=== PATIENT | male | born 1980 | race Two or more races ===

== ENCOUNTER 2019-11-07 20:58 | Emergency (ER) | payer BC, OTHER ==
[~2019-11-07] VITALS: Ht 180.3 cm; Wt 99.8 kg
[2019-11-07 22:04] LABS: Basophils # (auto) 0.1 uL; Basophils % (auto) 0.5 % (0.0-2.0); Eosinophils # (auto) 0.1 uL; Eosinophils % (auto) 1.4 % (0.0-7.0); Hematocrit 45.8 % (41.0-53.0); Hemoglobin 16.2 g/dL (13.5-17.5); Lymphocytes # (auto) 2.7 uL; Lymphocytes % (auto) 25.7 % (10.0-50.0); Mean Corpuscular Hemoglobin 30.1 pg (28.0-32.0); Mean Corpuscular Hgb Conc. 35.4 g/dL (32.0-36.0); Monocytes # (auto) 0.7 uL; Monocytes % (auto) 6.2 % (0.0-12.0); Neutrophils % (auto) 66.2 % (37.0-80.0); Nucleated Red Blood Cells % 1.2 %; Platelet Count (auto) 240 10^3/uL (140-450); Red Cell Distribution Width 13.1 % (11.8-14.3); White Blood Cell 10.6 10^3/uL (4.4-10.8)
[2019-11-07 22:20] LABS: BUN/Creatinine Ratio 15.7; Calcium 8.8 mg/dL (8.5-10.1); Potassium 3.4 mmol/L (3.5-5.1)
[2019-11-07] MEDS ORDERED: MECLIZINE HCL 25 MG TAB ONE (23:04)
[2019-11-07] MEDS ORDERED: MECLIZINE HCL 25 MG TAB PO ONE (23:15)
[2019-11-08 01:09] VITALS: BP 117/82
== END 2019-11-08 01:13 | disposition home or self-care (01) ==
LOC: ER 20:58 → EDBD 20:58 → ER 11-08 01:13
DX: R42 Dizziness and giddiness (principal)
CPT/HCPCS: 36415; 70450; 80048; 85025; 99284; J8597

== ENCOUNTER 2021-04-23 06:20 | Emergency (ER) | payer BC, OTHER ==
[~2021-04-23] VITALS: Ht 180.3 cm; Wt 121.6 kg
[2021-04-23] MEDS ORDERED: ASPirin 81 mg TAB PO ONE (06:45)
[2021-04-23 07:12] LABS: Albumin 3.8 g/dL (3.4-5.0); Anion Gap 6 (5-15); BUN/Creatinine Ratio 17.6; Blood Urea Nitrogen 13 mg/dL (7-18); Calcium 8.2 mg/dL (8.5-10.1); Carbon Dioxide 24 mmol/L (21-32); Chloride 106 mmol/L (98-107); GFR African American 150 mL/min; GFR Non-African American 124 mL/min; Glucose 133 mg/dL (74-106); Potassium 3.8 mmol/L (3.5-5.1); Sodium 136 mmol/L (136-145)
[2021-04-23 07:17] VITALS: BP 119/78
[2021-04-23 07:17] LABS: Alanine Aminotransferase 158 U/L (16-61); Alkaline Phosphatase 65 U/L (45-117); Aspartate Aminotransferase 88 U/L (15-37); Total Protein 7.6 g/dL (6.4-8.2)
[2021-04-23 07:28] LABS: Basophils # (auto) 0 10 ^3/uL (0-0.2); Basophils % (auto) 0.3 % (0.0-2.0); Eosinophils # (auto) 0.1 10 ^3/uL (0-0.8); Eosinophils % (auto) 1.9 % (0.0-7.0); Hematocrit 45.3 % (41.0-53.0); Hemoglobin 16.4 g/dL (13.5-17.5); Lymphocytes # (auto) 2.1 10 ^3/uL (0.4-5.4); Lymphocytes % (auto) 31.3 % (10.0-50.0); Mean Corpuscular Hemoglobin 31.7 pg (28.0-32.0); Mean Corpuscular Volume 87.6 fL (80.0-100.0); Monocytes # (auto) 0.4 10 ^3/uL (0-1.3); Monocytes % (auto) 5.7 % (0.0-12.0); Neutrophils % (auto) 60.8 % (37.0-80.0); Nucleated Red Blood Cells % 0.2 %; Red Blood Cells 5.17 10^6/uL (4.5-5.90); Red Cell Distribution Width 13.2 % (11.8-14.3); White Blood Cell 6.7 10^3/uL (4.4-10.8)
[2021-04-23 07:32] LABS: Mean Corpuscular Hgb Conc. 36.2 g/dL (32.0-36.0)
[2021-04-23 08:36] LABS: Amphetamine Screen, Urine NEGATIVE (NEGATIVE); Barbiturate Scree,Urine NEGATIVE (NEGATIVE); Benzodiazephine Screen, Urine POSITIVE (NEGATIVE); Cannabinoid Screen, Urine NEGATIVE (NEGATIVE); Cocaine Screen, Urine NEGATIVE (NEGATIVE); Opiate Scree,Urine NEGATIVE (NEGATIVE); Phencyclidine Screen, Urine NEGATIVE (NEGATIVE)
== END 2021-04-23 08:01 | disposition home or self-care (01) ==
LOC: EDBD 06:20 → ER 06:20
DX: R07.89 Other chest pain (principal); F41.9 Anxiety disorder, unspecified; R73.9 Hyperglycemia, unspecified; I10 Essential (primary) hypertension; Z90.49 Acquired absence of other specified parts of digestive tract
CPT/HCPCS: 36415; 71045; 80053; 80307; 84443; 84484; 85025; 93005

== ENCOUNTER 2021-09-16 11:16 | Inpatient (IN) | payer BC ==
[~2021-09-16] VITALS: Ht 195.6 cm; Wt 121.0 kg
[2021-09-16] MEDS ORDERED: SODIUM CHLORIDE 0.9% 1,000 ML IVB ONE (11:30)
[2021-09-16] MEDS ORDERED: PANTOPRAZOLE 40 MG/10 ML VIAL INJ IV ONE (11:30)
[2021-09-16] MEDS ORDERED: PROCHLORPERAZINE EDISYLATE 5 MG/ML 2ML VIAL IV ONE (11:30)
[2021-09-16 14:10] LABS: Urine Bacteria NONE SEEN /hpf (None Seen); Urine Blood Negative /uL (Negative); Urine Specific Gravity 1.011 (1.001-1.035); Urine WBC 1 /hpf (0 - 3)
[2021-09-16 14:26] LABS: Eosinophils # (auto) 0 10 ^3/uL (0-0.8); Eosinophils % (auto) 0.4 % (0.0-7.0); Mean Corpuscular Hgb Conc. 35.9 g/dL (32.0-36.0); Monocytes # (auto) 0.4 10 ^3/uL (0-1.3)
[2021-09-16 14:27] LABS: Basophils # (auto) 0.1 10 ^3/uL (0-0.2); Basophils % (auto) 0.7 % (0.0-2.0); Hematocrit 50.2 % (41.0-53.0); Lymphocytes # (auto) 1.5 10 ^3/uL (0.4-5.4); Lymphocytes % (auto) 15.7 % (10.0-50.0); Mean Corpuscular Hemoglobin 31.9 pg (28.0-32.0); Monocytes % (auto) 4.4 % (0.0-12.0); Neutrophils # (auto) 7.4 10 ^3/uL (1.6-8.6); Neutrophils % (auto) 78.8 % (37.0-80.0); Nucleated Red Blood Cells % 0.5 %; Red Blood Cells 5.64 10^6/uL (4.5-5.90); Red Cell Distribution Width 13.3 % (11.8-14.3); White Blood Cell 9.4 10^3/uL (4.4-10.8)
[2021-09-16 14:42] LABS: Albumin 4.1 g/dL (3.4-5.0); Calcium 8.9 mg/dL (8.5-10.1); Magnesium 2.9 mg/dL (1.6-2.6); Potassium 3.9 mmol/L (3.5-5.1)
[2021-09-16 15:21] LABS: BUN/Creatinine Ratio 10.3; Bilirubin, Total 0.9 mg/dL (0.2-1.0); Total Protein 8.4 g/dL (6.4-8.2)
[2021-09-16] MEDS: MORPHINE SULFATE 4 MG/ML SYR/VIAL IV ONE ×2 (17:14→21:30)
[2021-09-16] MEDS ORDERED: HYDROcodone-ACET 5/325MG TAB PO PRN (21:30)
[2021-09-16] MEDS ORDERED: ONDANSETRON HCL 4 MG/2 ML VIAL IV PRN (21:30)
[2021-09-16] MEDS ORDERED: ACETAMINOPHEN 325 MG TAB PO PRN (21:30)
[2021-09-16] MEDS ORDERED: MORPHINE SULFATE INJECTION 2 MG/ML SYRG IV PRN (21:30)
[2021-09-16] MEDS ORDERED: TEMAZEPAM 15 MG CAP PO PRN (22:00)
[2021-09-16 23:30] VITALS: BP 131/85
[2021-09-17] MEDS ORDERED: AMOX250C3 PO (01:34)
[2021-09-17] MEDS ORDERED: OMEP20TA PO (01:34)
[2021-09-17] MEDS ORDERED: LOSA25TA38 PO (01:34)
[2021-09-17] MEDS ORDERED: ALPR0.254 PO (01:34)
[2021-09-17 05:00] VITALS: BP 131/89
[2021-09-17 06:39] LABS: Basophils # (auto) 0.1 10 ^3/uL (0-0.2); Basophils % (auto) 0.9 % (0.0-2.0); Eosinophils # (auto) 0.1 10 ^3/uL (0-0.8); Eosinophils % (auto) 1.4 % (0.0-7.0); Hematocrit 44.9 % (41.0-53.0); Hemoglobin 16.2 g/dL (13.5-17.5); Lymphocytes # (auto) 1.7 10 ^3/uL (0.4-5.4); Mean Corpuscular Hemoglobin 32.5 pg (28.0-32.0); Mean Corpuscular Volume 90.1 fL (80.0-100.0); Monocytes # (auto) 0.5 10 ^3/uL (0-1.3); Monocytes % (auto) 6.8 % (0.0-12.0); Neutrophils # (auto) 4.5 10 ^3/uL (1.6-8.6); Neutrophils % (auto) 65.9 % (37.0-80.0); Nucleated Red Blood Cells % 0.1 %; Red Blood Cells 4.98 10^6/uL (4.5-5.90); Red Cell Distribution Width 13.2 % (11.8-14.3); White Blood Cell 6.8 10^3/uL (4.4-10.8)
[2021-09-17 06:50] LABS: Albumin 3.4 g/dL (3.4-5.0); Calcium 8.3 mg/dL (8.5-10.1)
[2021-09-17 06:55] LABS: Bilirubin, Total 1.2 mg/dL (0.2-1.0); Total Protein 6.9 g/dL (6.4-8.2)
[2021-09-17 09:00] VITALS: BP 125/96
[2021-09-17] MEDS: PANTOPRAZOLE 40 MG TAB PO SCH (09:35)
[2021-09-17] MEDS: LOSARTAN POTASSIUM 25 MG TAB PO SCH (09:35)
[2021-09-17 13:00] VITALS: BP 126/79
[2021-09-17 17:00] VITALS: BP 140/97
[2021-09-17 22:00] VITALS: BP 127/84
[2021-09-18 05:00] VITALS: BP 103/69
[2021-09-18 08:37] VITALS: BP 120/93
[2021-09-18] MEDS: PANTOPRAZOLE 40 MG TAB PO SCH (08:38)
[2021-09-18] MEDS: LOSARTAN POTASSIUM 25 MG TAB PO SCH (08:39)
[2021-09-18] MEDS ORDERED: DOCUSATE SOD 100 MG CAP PO SCH (10:00)
== END 2021-09-18 13:40 | disposition home or self-care (01) | DRG 392 ==
LOC: EDBD 11:16 → ER 11:16 → OVERFLOW 21:16 → CENTRAL 23:27
PROVIDERS: ADMIT Nurse Practitioner; ATTEND Family Medicine
DX: K29.60 Other gastritis without bleeding (principal); B96.81 Helicobacter pylori [H. pylori] as the cause of diseases classified elsewhere; E11.9 Type 2 diabetes mellitus without complications; E66.01 Morbid (severe) obesity due to excess calories; E78.5 Hyperlipidemia, unspecified; F41.9 Anxiety disorder, unspecified; I10 Essential (primary) hypertension; K76.0 Fatty (change of) liver, not elsewhere classified; Z20.822 Contact with and (suspected) exposure to COVID-19; Z68.31 Body mass index [BMI] 31.0-31.9, adult; Z86.19 Personal history of other infectious and parasitic diseases; Z90.49 Acquired absence of other specified parts of digestive tract
CPT/HCPCS: 36415; 74176; 80053; 81001; 82150; 83690; 83735; 84484; 85025; 87426; 93005; 96361; 96374; 96375; C9113; G0378; J2405

== ENCOUNTER → 2021-10-10 | Outpatient (CLI) | payer BC ==
[~2021-10-10] MED LIST: ALPR0.254 PO; AMOX250C3 PO; LOSA25TA38 PO; OMEP20TA PO
[2021-10-10 13:12] LABS: Basophils # (auto) 0 10 ^3/uL (0-0.2); Basophils % (auto) 0.6 % (0.0-2.0); Eosinophils # (auto) 0.1 10 ^3/uL (0-0.8); Eosinophils % (auto) 1.5 % (0.0-7.0); Lymphocytes # (auto) 1.4 10 ^3/uL (0.4-5.4); Lymphocytes % (auto) 20.5 % (10.0-50.0); Mean Corpuscular Hemoglobin 30.9 pg (28.0-32.0); Mean Corpuscular Hgb Conc. 34.6 g/dL (32.0-36.0); Mean Corpuscular Volume 89.2 fL (80.0-100.0); Monocytes # (auto) 0.3 10 ^3/uL (0-1.3); Monocytes % (auto) 3.8 % (0.0-12.0); Neutrophils % (auto) 73.6 % (37.0-80.0); Nucleated Red Blood Cells % 0.1 %; Red Blood Cells 5.49 10^6/uL (4.5-5.90); White Blood Cell 6.8 10^3/uL (4.4-10.8)
[2021-10-10 13:58] LABS: Albumin 3.9 g/dL (3.4-5.0); Calcium 8.7 mg/dL (8.5-10.1); Potassium 3.8 mmol/L (3.5-5.1)
[2021-10-10 14:03] LABS: BUN/Creatinine Ratio 14.8; Bilirubin, Total 0.9 mg/dL (0.2-1.0); Total Protein 7.5 g/dL (6.4-8.2)
== END | disposition home or self-care (01) ==
LOC: LAB 12:35
PROVIDERS: ATTEND Internal Medicine Gastroenterology
DX: R94.5 Abnormal results of liver function studies (principal)
CPT/HCPCS: 36415; 80053; 80061; 82728; 83036; 85025; 86038; 86803; 87340

== ENCOUNTER → 2021-12-17 | Day surgery (SDC) | payer BC ==
[2021-12-15 13:45] LABS: Basophils # (auto) 0.2 10 ^3/uL (0-0.2); Basophils % (auto) 2.5 % (0.0-2.0); Eosinophils # (auto) 0.1 10 ^3/uL (0-0.8); Eosinophils % (auto) 0.6 % (0.0-7.0); Hematocrit 48.2 % (41.0-53.0); Hemoglobin 17.1 g/dL (13.5-17.5); Lymphocytes # (auto) 1.8 10 ^3/uL (0.4-5.4); Lymphocytes % (auto) 20.7 % (10.0-50.0); Mean Corpuscular Hemoglobin 31.8 pg (28.0-32.0); Mean Corpuscular Hgb Conc. 35.4 g/dL (32.0-36.0); Mean Corpuscular Volume 89.7 fL (80.0-100.0); Monocytes # (auto) 0.4 10 ^3/uL (0-1.3); Monocytes % (auto) 4.9 % (0.0-12.0); Neutrophils # (auto) 6.2 10 ^3/uL (1.6-8.6); Neutrophils % (auto) 71.3 % (37.0-80.0); Nucleated Red Blood Cells % 0.4 %; Red Blood Cells 5.37 10^6/uL (4.5-5.90); Red Cell Distribution Width 13.6 % (11.8-14.3); White Blood Cell 8.7 10^3/uL (4.4-10.8)
[2021-12-15 14:07] LABS: INR 0.99 (0.9-1.15); Partial Thromboplastin Time 25.2 sec (23.6-33.0)
[2021-12-15 14:33] LABS: Albumin 3.8 g/dL (3.4-5.0); BUN/Creatinine Ratio 12.2
[2021-12-15 14:36] LABS: Bilirubin, Total 0.7 mg/dL (0.2-1.0); Total Protein 7.9 g/dL (6.4-8.2)
[~2021-12-17] VITALS: Ht 180.3 cm; Wt 117.9 kg
[~2021-12-17] MED LIST changes: +CLAR1TAB21 PO; +FAMO20TA10 PO; +LIDOCAINE VISCOUS 2% 15ML UD ONE; +MIDAZOLAM HCL 5 MG/ML-1ML VIAL ONE; +ONDA-144 PO; +PANT40TA2 PO; +PERCOT PO; +SUCR1TAB22 PO
[2021-12-17] MEDS: MIDAZOLAM HCL 5 MG/ML-1ML VIAL ONE ×3 (13:41→13:47)
[2021-12-17] MEDS: diphenhdrAMINE HCL 50 MG/1 ML VL ONE ×2 (13:41→13:44)
[2021-12-17] MEDS: fentaNYL CITRATE 100 MCG/2 ML VL ONE ×5 (13:41→14:04)
[2021-12-17 14:50] VITALS: BP 144/97
== END | disposition home or self-care (01) ==
LOC: GI 12:33
PROVIDERS: ATTEND Internal Medicine Gastroenterology
DX: R19.4 Change in bowel habit (principal); K62.5 Hemorrhage of anus and rectum; D12.3 Benign neoplasm of transverse colon; K64.8 Other hemorrhoids; K29.50 Unspecified chronic gastritis without bleeding; K21.9 Gastro-esophageal reflux disease without esophagitis; K44.9 Diaphragmatic hernia without obstruction or gangrene; K22.10 Ulcer of esophagus without bleeding; K29.90 Gastroduodenitis, unspecified, without bleeding; K63.89 Other specified diseases of intestine; I10 Essential (primary) hypertension; G47.30 Sleep apnea, unspecified; J45.909 Unspecified asthma, uncomplicated; F41.9 Anxiety disorder, unspecified; Z80.3 Family history of malignant neoplasm of breast
CPT/HCPCS: 36415; 43239; 45380; 80053; 85025; 85610; 85730; 88305; 88342; J1200; J2250; J3010; J7030; U0003; 99152; 99153

== ENCOUNTER 2021-12-18 13:14 | Inpatient (IN) | payer BC ==
[~2021-12-18] VITALS: Ht 165.1 cm; Wt 128.2 kg
[~2021-12-18 13:14] MED LIST changes: -AMOX250C3 PO; -CLAR1TAB21 PO; -FAMO20TA10 PO; -LIDOCAINE VISCOUS 2% 15ML UD ONE; -MIDAZOLAM HCL 5 MG/ML-1ML VIAL ONE; -ONDA-144 PO; -PANT40TA2 PO; -PERCOT PO; -SUCR1TAB22 PO
[2021-12-18 14:08] LABS: Basophils # (auto) 0.1 10 ^3/uL (0-0.2); Basophils % (auto) 0.7 % (0.0-2.0); Eosinophils # (auto) 0.1 10 ^3/uL (0-0.8); Eosinophils % (auto) 0.7 % (0.0-7.0); Hematocrit 47.9 % (41.0-53.0); Hemoglobin 17.1 g/dL (13.5-17.5); Lymphocytes # (auto) 1.2 10 ^3/uL (0.4-5.4); Lymphocytes % (auto) 13.6 % (10.0-50.0); Mean Corpuscular Hgb Conc. 35.7 g/dL (32.0-36.0); Mean Corpuscular Volume 89.6 fL (80.0-100.0); Monocytes # (auto) 0.4 10 ^3/uL (0-1.3); Monocytes % (auto) 3.9 % (0.0-12.0); Neutrophils # (auto) 7.4 10 ^3/uL (1.6-8.6); Neutrophils % (auto) 81.1 % (37.0-80.0); Nucleated Red Blood Cells % 0.9 %; Red Blood Cells 5.34 10^6/uL (4.5-5.90); Red Cell Distribution Width 13.1 % (11.8-14.3); White Blood Cell 9.1 10^3/uL (4.4-10.8)
[2021-12-18 14:21] LABS: Albumin 3.8 g/dL (3.4-5.0); Calcium 9.1 mg/dL (8.5-10.1); Potassium 3.9 mmol/L (3.5-5.1)
[2021-12-18 14:36] LABS: BUN/Creatinine Ratio 14.3; Bilirubin, Total 1.2 mg/dL (0.2-1.0); Total Protein 7.8 g/dL (6.4-8.2)
[2021-12-18] MEDS ORDERED: SODIUM CHLORIDE 0.9% 1,000 ML IV ONE (14:45)
[2021-12-18] MEDS ORDERED: ONDANSETRON HCL 4 MG/2 ML VIAL IV ONE (16:15)
[2021-12-18] MEDS ORDERED: ONDA-144 PO (16:18)
[2021-12-18] MEDS ORDERED: PERCOT PO (16:27)
[2021-12-18] MEDS ORDERED: HYDROmorphone HCL 2 MG/ML VL IV ONE (16:30)
[2021-12-18] MEDS ORDERED: MORPHINE SULFATE INJECTION 2 MG/ML SYRG IV PRN ×2 (18:00→19:45)
[2021-12-18] MEDS ORDERED: NITROGLYCERIN 0.4 MG SL TAB SL PRN (18:00)
[2021-12-18] MEDS ORDERED: LORazepam 2MG/ML-1ML VIAL IV PRN (18:45)
[2021-12-18] MEDS ORDERED: PANTOPRAZOLE 40 MG/10 ML VIAL INJ IV ONE (18:45)
[2021-12-18] MEDS ORDERED: ONDANSETRON HCL 4 MG/2 ML VIAL IV PRN ×2 (18:45→19:45)
[2021-12-18] MEDS: SODIUM CHLORIDE 0.9% 1,000 ML IV SCH (19:00)
[2021-12-18] MEDS ORDERED: LACTATED RINGER'S 1,000 ML IV ONE (19:00)
[2021-12-18 19:45] VITALS: BP 134/83
[2021-12-18] MEDS ORDERED: FERROUS SULFATE 325mg EC TAB PO ONE (19:45)
[2021-12-18] MEDS ORDERED: DOCUSATE SOD 100 MG CAP PO PRN (19:45)
[2021-12-18] MEDS ORDERED: hydrALAZINE HCL 20 MG/ML VL IV PRN (19:45)
[2021-12-18] MEDS ORDERED: LACTULOSE 20Gm/30ML SOLN PO PRN (19:45)
[2021-12-18] MEDS ORDERED: MULTIPLE VITAMINS W/ MINERALS TAB PO ONE (19:45)
[2021-12-18] MEDS ORDERED: FOLIC ACID 1 MG TAB PO ONE (19:45)
[2021-12-18] MEDS ORDERED: IPRATROPIUM BROM 0.5 MG/2.5ML INH SOL NEB ONE (19:45)
[2021-12-18] MEDS ORDERED: HYDROcodone-ACET 5/325MG TAB PO PRN (19:45)
[2021-12-18] MEDS ORDERED: HYDROcodone-ACET 5/325MG TAB PO ONE (19:45)
[2021-12-18] MEDS ORDERED: LABETALOL HCL 5 MG/ML 4ML SYRINGE IV PRN (19:45)
[2021-12-18] MEDS ORDERED: SUCRALFATE 1 GM/10 ML ORAL SUSP PO ONE (19:45)
[2021-12-18 20:19] VITALS: BP 134/83
[2021-12-18 20:46] LABS: Magnesium 2.3 mg/dL (1.6-2.6)
[2021-12-18 20:49] LABS: INR 1.02 (0.9-1.15); Partial Thromboplastin Time 24.8 sec (23.6-33.0)
[2021-12-18] MEDS ORDERED: ATORVASTATIN 20 MG TAB PO SCH (22:00)
[2021-12-18] MEDS: CLARITHROMYCIN 500 MG PO SCH (22:00)
[2021-12-18] MEDS ORDERED: IPRATROPIUM BROM 0.5 MG/2.5ML INH SOL NEB SCH (22:00)
[2021-12-18] MEDS: AMOXICILLIN TRIHYDRATE 250 MG CAP PO SCH (23:17)
[2021-12-18] MEDS: LORazepam 0.5 MG TAB PO SCH (23:49)
[2021-12-19] VITALS (8 sets, daily range): BP systolic 126–149; BP diastolic 83–109
[2021-12-19] MEDS ORDERED: CLAR1TAB21 PO (01:32)
[2021-12-19] MEDS ORDERED: AMOX250C3 PO (01:32)
[2021-12-19] MEDS: LORazepam 0.5 MG TAB PO SCH ×3 (05:36→17:51)
[2021-12-19] MEDS: SUCRALFATE 1 GM/10 ML ORAL SUSP PO SCH ×4 (06:26→23:10)
[2021-12-19 06:48] LABS: Basophils # (auto) 0 10 ^3/uL (0-0.2); Basophils % (auto) 0.5 % (0.0-2.0); Eosinophils # (auto) 0.1 10 ^3/uL (0-0.8); Hematocrit 45.6 % (41.0-53.0); Hemoglobin 16.3 g/dL (13.5-17.5); Lymphocytes # (auto) 1.6 10 ^3/uL (0.4-5.4); Mean Corpuscular Hemoglobin 32.4 pg (28.0-32.0); Mean Corpuscular Hgb Conc. 35.8 g/dL (32.0-36.0); Mean Corpuscular Volume 90.3 fL (80.0-100.0); Monocytes # (auto) 0.5 10 ^3/uL (0-1.3); Monocytes % (auto) 5.8 % (0.0-12.0); Neutrophils # (auto) 5.8 10 ^3/uL (1.6-8.6); Neutrophils % (auto) 72.7 % (37.0-80.0); Nucleated Red Blood Cells % 0.1 %; Red Blood Cells 5.05 10^6/uL (4.5-5.90); Red Cell Distribution Width 13.1 % (11.8-14.3)
[2021-12-19 07:05] LABS: INR 1.02 (0.9-1.15); Partial Thromboplastin Time 25.1 sec (23.6-33.0)
[2021-12-19 07:13] LABS: Albumin 3.6 g/dL (3.4-5.0); Potassium 3.6 mmol/L (3.5-5.1)
[2021-12-19 07:37] LABS: Bilirubin, Total 1.4 mg/dL (0.2-1.0); CRP High Sensitivity 2.39 mg/dL (< 0.3); Calcium 8.9 mg/dL (8.5-10.1); Magnesium 2.6 mg/dL (1.6-2.6); Phosphorus 3.8 mg/dL (2.5-4.90); Total Protein 7.4 g/dL (6.4-8.2); Uric Acid 6.4 mg/dL (3.5-7.2)
[2021-12-19 08:16] LABS: Thyroid Stimulating Hormone 2.72 uIU/mL (0.358-3.74)
[2021-12-19] MEDS: FERROUS SULFATE 325mg EC TAB PO SCH ×3 (09:04→17:51)
[2021-12-19] MEDS: SODIUM CHLORIDE 0.9% 1,000 ML IV SCH ×2 (09:05→17:40)
[2021-12-19] MEDS: PANTOPRAZOLE 40 MG/10 ML VIAL INJ IV SCH ×2 (09:59→23:09)
[2021-12-19] MEDS: ENOXAPARIN SOD 40 MG/0.4 ML SYRINGE SC SCH (09:59)
[2021-12-19] MEDS: AMOXICILLIN TRIHYDRATE 250 MG CAP PO SCH ×2 (10:00→23:23)
[2021-12-19] MEDS: CLARITHROMYCIN 500 MG PO SCH ×2 (10:00→22:00)
[2021-12-19] MEDS ORDERED: CYANOCOBALAMIN 500 MCG TAB PO SCH (10:00)
[2021-12-19] MEDS ORDERED: ASPirin 81 mg TAB PO SCH (10:00)
[2021-12-19] MEDS: THIAMINE HCL 100 MG TAB PO SCH (10:00)
[2021-12-19] MEDS: CHOLECALCIFEROL (VITD3) 2,000 UNIT CAP/TAB PO SCH (10:01)
[2021-12-19] MEDS ORDERED: ALBUTEROL SULF 2.5 MG/0.5ML(0.5%) NEB SOLN NEB PRN (23:00)
[2021-12-19] MEDS: FOLIC ACID 1 MG TAB PO SCH (23:10)
[2021-12-19] MEDS: MULTIPLE VITAMINS W/ MINERALS TAB PO SCH (23:11)
[2021-12-20] VITALS (8 sets, daily range): BP systolic 131–159; BP diastolic 78–109
[2021-12-20] MEDS: SODIUM CHLORIDE 0.9% 1,000 ML IV SCH ×2 (06:10→13:09)
[2021-12-20] MEDS: SUCRALFATE 1 GM/10 ML ORAL SUSP PO SCH ×4 (06:44→22:45)
[2021-12-20] MEDS: LORazepam 0.5 MG TAB PO SCH ×2 (06:44→18:00)
[2021-12-20 06:51] LABS: Hematocrit 44.4 % (41.0-53.0)
[2021-12-20 06:57] LABS: Potassium 4.2 mmol/L (3.5-5.1)
[2021-12-20 07:09] LABS: Albumin 3.4 g/dL (3.4-5.0); Bilirubin, Total 1.1 mg/dL (0.2-1.0); Total Protein 7.2 g/dL (6.4-8.2)
[2021-12-20 08:06] LABS: Bilirubin, Direct 0.3 mg/dL (0-0.2)
[2021-12-20] MEDS: FERROUS SULFATE 325mg EC TAB PO SCH ×3 (08:29→18:16)
[2021-12-20] MEDS: PANTOPRAZOLE 40 MG/10 ML VIAL INJ IV SCH ×2 (09:13→22:45)
[2021-12-20] MEDS: ENOXAPARIN SOD 40 MG/0.4 ML SYRINGE SC SCH (09:13)
[2021-12-20] MEDS: CHOLECALCIFEROL (VITD3) 2,000 UNIT CAP/TAB PO SCH (09:13)
[2021-12-20] MEDS: THIAMINE HCL 100 MG TAB PO SCH (09:14)
[2021-12-20] MEDS: AMOXICILLIN TRIHYDRATE 250 MG CAP PO SCH ×2 (09:14→22:45)
[2021-12-20] MEDS: CLARITHROMYCIN 500 MG PO SCH ×2 (09:16→22:45)
[2021-12-20] MEDS: MULTIPLE VITAMINS W/ MINERALS TAB PO SCH (22:45)
[2021-12-20] MEDS: FOLIC ACID 1 MG TAB PO SCH (22:45)
[2021-12-21] VITALS (7 sets, daily range): BP systolic 113–135; BP diastolic 74–93
[2021-12-21] MEDS: LORazepam 0.5 MG TAB PO SCH ×2 (05:53→17:44)
[2021-12-21] MEDS: SUCRALFATE 1 GM/10 ML ORAL SUSP PO SCH ×4 (06:31→21:45)
[2021-12-21 07:10] LABS: Albumin 3.3 g/dL (3.4-5.0); Calcium 8.5 mg/dL (8.5-10.1); Potassium 3.6 mmol/L (3.5-5.1)
[2021-12-21 07:12] LABS: BUN/Creatinine Ratio 9.3
[2021-12-21 07:13] LABS: Albumin 3.3 g/dL (3.4-5.0)
[2021-12-21 07:14] LABS: Bilirubin, Total 1.3 mg/dL (0.2-1.0)
[2021-12-21 07:18] LABS: Bilirubin, Direct 0.4 mg/dL (0-0.2); Bilirubin, Total 1.3 mg/dL (0.2-1.0); Total Protein 7.1 g/dL (6.4-8.2)
[2021-12-21] MEDS: FERROUS SULFATE 325mg EC TAB PO SCH ×3 (08:00→17:45)
[2021-12-21] MEDS: SODIUM CHLORIDE 0.9% 1,000 ML IV SCH (09:00)
[2021-12-21] MEDS: CLARITHROMYCIN 500 MG PO SCH ×2 (10:00→21:45)
[2021-12-21] MEDS: PANTOPRAZOLE 40 MG/10 ML VIAL INJ IV SCH ×2 (10:00→21:44)
[2021-12-21] MEDS: ENOXAPARIN SOD 40 MG/0.4 ML SYRINGE SC SCH (10:00)
[2021-12-21] MEDS: THIAMINE HCL 100 MG TAB PO SCH (10:00)
[2021-12-21] MEDS: AMOXICILLIN TRIHYDRATE 250 MG CAP PO SCH ×2 (10:00→21:45)
[2021-12-21] MEDS: CHOLECALCIFEROL (VITD3) 2,000 UNIT CAP/TAB PO SCH (10:00)
[2021-12-21] MEDS: LOSARTAN POTASSIUM 25 MG TAB PO SCH (10:00)
[2021-12-21] MEDS ORDERED: FAMOTIDINE 20 MG TAB PO SCH (18:00)
[2021-12-21] MEDS: FOLIC ACID 1 MG TAB PO SCH (21:45)
[2021-12-21] MEDS: MULTIPLE VITAMINS W/ MINERALS TAB PO SCH (21:45)
[2021-12-22] MEDS: SODIUM CHLORIDE 0.9% 1,000 ML IV SCH (04:11)
[2021-12-22 05:00] VITALS: BP 127/81
[2021-12-22] MEDS: SUCRALFATE 1 GM/10 ML ORAL SUSP PO SCH ×3 (06:20→17:00)
[2021-12-22 07:59] LABS: Potassium 3.4 mmol/L (3.5-5.1)
[2021-12-22] MEDS: FERROUS SULFATE 325mg EC TAB PO SCH ×3 (08:00→17:26)
[2021-12-22 08:07] LABS: Albumin 3.2 g/dL (3.4-5.0); Bilirubin, Direct 0.3 mg/dL (0-0.2); Bilirubin, Total 0.8 mg/dL (0.2-1.0); Total Protein 6.9 g/dL (6.4-8.2)
[2021-12-22 09:00] VITALS: BP 129/95
[2021-12-22] MEDS: PANTOPRAZOLE 40 MG/10 ML VIAL INJ IV SCH (09:43)
[2021-12-22] MEDS: AMOXICILLIN TRIHYDRATE 250 MG CAP PO SCH (09:45)
[2021-12-22] MEDS: THIAMINE HCL 100 MG TAB PO SCH (09:46)
[2021-12-22] MEDS: CLARITHROMYCIN 500 MG PO SCH (09:46)
[2021-12-22] MEDS: ENOXAPARIN SOD 40 MG/0.4 ML SYRINGE SC SCH (09:47)
[2021-12-22] MEDS: LOSARTAN POTASSIUM 25 MG TAB PO SCH (09:47)
[2021-12-22] MEDS: CHOLECALCIFEROL (VITD3) 2,000 UNIT CAP/TAB PO SCH (09:47)
[2021-12-22 12:55] VITALS: BP 130/85
[2021-12-22] MEDS ORDERED: FAMO20TA10 PO (13:11)
[2021-12-22] MEDS ORDERED: SUCR1TAB22 PO (13:11)
[2021-12-22] MEDS ORDERED: PANT40TA2 PO (13:11)
[2021-12-22] MEDS ORDERED: POTASSIUM EFFERVESENT TAB 25 MEQ PO ONE (13:15)
[2021-12-22 16:43] LABS: Hepatitis A Ab IgM Negative; Hepatitis B Core IgM Negative; Hepatitis C Antibody Negative (Negative)
[2021-12-22 17:00] VITALS: BP 116/79
[2021-12-22] MEDS ORDERED: CLARITHROMYCIN 500 MG TAB PO SCH (22:00)
== END 2021-12-22 18:00 | disposition home or self-care (01) | DRG 392 ==
LOC: ER 13:14 → EDBD 13:14 → OVERFLOW 17:59 → CENTRAL 19:42
PROVIDERS: ADMIT Hospitalist; ATTEND Internal Medicine
DX: K29.90 Gastroduodenitis, unspecified, without bleeding (principal); F10.239 Alcohol dependence with withdrawal, unspecified; I16.9 Hypertensive crisis, unspecified; Z68.42 Body mass index [BMI] 45.0-49.9, adult; K21.9 Gastro-esophageal reflux disease without esophagitis; E66.01 Morbid (severe) obesity due to excess calories; E11.65 Type 2 diabetes mellitus with hyperglycemia; E78.5 Hyperlipidemia, unspecified; E87.6 Hypokalemia; F41.0 Panic disorder [episodic paroxysmal anxiety]; I10 Essential (primary) hypertension; K70.9 Alcoholic liver disease, unspecified; R79.89 Other specified abnormal findings of blood chemistry; Z20.822 Contact with and (suspected) exposure to COVID-19; Z87.19 Personal history of other diseases of the digestive system; Z90.49 Acquired absence of other specified parts of digestive tract
CPT/HCPCS: 36415; 71045; 74176; 76705; 80053; 80061; 80074; 80076; 82728; 83036; 83615; 83690; 83735; 83880; 84100; 84132; 84443; 84484; 84550; 85014; 85018; 85025; 85379; 85610; 85652; 85730; 86141; 87040; 93005; 94640; 96361; 96374; 96375; C9113; G0378; J2405

== ENCOUNTER → 2022-06-24 | Outpatient (CLI) | payer BC ==
[~2022-06-24] MED LIST changes: +AMOX250C3 PO; +CLAR1TAB21 PO; -OMEP20TA PO; +ONDA-144 PO; +PANT40TA2 PO; +PERCOT PO; +SUCR1TAB22 PO
[2022-06-24 09:28] LABS: Basophils # (auto) 0.1 10 ^3/uL (0-0.2); Basophils % (auto) 0.9 % (0.0-2.0); Eosinophils # (auto) 0.2 10 ^3/uL (0-0.8); Eosinophils % (auto) 2.1 % (0.0-7.0); Hematocrit 48.8 % (41.0-53.0); Hemoglobin 16.5 g/dL (13.5-17.5); Lymphocytes % (auto) 23.3 % (10.0-50.0); Mean Corpuscular Hemoglobin 30.7 pg (28.0-32.0); Mean Corpuscular Hgb Conc. 33.8 g/dL (32.0-36.0); Mean Corpuscular Volume 90.8 fL (80.0-100.0); Monocytes # (auto) 0.3 10 ^3/uL (0-1.3); Monocytes % (auto) 4.1 % (0.0-12.0); Neutrophils # (auto) 5.9 10 ^3/uL (1.6-8.6); Neutrophils % (auto) 69.6 % (37.0-80.0); Nucleated Red Blood Cells % 0.5 %; Red Blood Cells 5.38 10^6/uL (4.5-5.90); Red Cell Distribution Width 13.2 % (11.8-14.3); White Blood Cell 8.5 10^3/uL (4.4-10.8)
[2022-06-24 09:46] LABS: INR 0.98 (0.9-1.15)
[2022-06-24 10:04] LABS: Potassium 4.5 mmol/L (3.5-5.1)
[2022-06-24 10:15] LABS: Albumin 3.6 g/dL (3.4-5.0); BUN/Creatinine Ratio 15.2; Bilirubin, Total 1.1 mg/dL (0.2-1.0); Calcium 8.9 mg/dL (8.5-10.1); Total Protein 7.5 g/dL (6.4-8.2)
== END | disposition home or self-care (01) ==
LOC: LAB 09:10
PROVIDERS: ATTEND Internal Medicine Gastroenterology
DX: R94.5 Abnormal results of liver function studies (principal); K29.00 Acute gastritis without bleeding; K21.00 Gastro-esophageal reflux disease with esophagitis, without bleeding
CPT/HCPCS: 36415; 80053; 80061; 83036; 84443; 85025; 85610

== ENCOUNTER 2023-03-16 14:58 | Inpatient (IN) | payer BC ==
[~2023-03-16] VITALS: Ht 154.9 cm; Wt 121.8 kg
[~2023-03-16 14:58] MED LIST changes: +LOSA25TA15 PO; -LOSA25TA38 PO
[2023-03-16] MEDS ORDERED: ONDANSETRON HCL 4 MG/2 ML VIAL IV ONE (16:15)
[2023-03-16] MEDS ORDERED: LORazepam 2MG/ML-1ML VIAL IV ONE (16:15)
[2023-03-16 16:26] LABS: Basophils # (auto) 0.1 10 ^3/uL (0-0.2); Basophils % (auto) 0.7 % (0.0-2.0); Eosinophils # (auto) 0.1 10 ^3/uL (0-0.8); Eosinophils % (auto) 0.7 % (0.0-7.0); Hematocrit 49.5 % (41.0-53.0); Hemoglobin 17.4 g/dL (13.5-17.5); Lymphocytes # (auto) 1.9 10 ^3/uL (0.4-5.4); Lymphocytes % (auto) 20.7 % (10.0-50.0); Mean Corpuscular Hemoglobin 31.3 pg (28.0-32.0); Mean Corpuscular Hgb Conc. 35.1 g/dL (32.0-36.0); Mean Corpuscular Volume 89.1 fL (80.0-100.0); Monocytes # (auto) 0.6 10 ^3/uL (0-1.3); Monocytes % (auto) 6.1 % (0.0-12.0); Neutrophils # (auto) 6.5 10 ^3/uL (1.6-8.6); Neutrophils % (auto) 71.8 % (37.0-80.0); Nucleated Red Blood Cells % 0.3 %; Red Blood Cells 5.55 10^6/uL (4.5-5.90); Red Cell Distribution Width 14.4 % (11.8-14.3)
[2023-03-16 16:37] LABS: Urine Bacteria NONE SEEN /hpf (None Seen); Urine Blood Negative /uL (Negative); Urine Specific Gravity 1.008 (1.001-1.035); Urine WBC <1 /hpf (0 - 3)
[2023-03-16 16:56] LABS: Alanine Aminotransferase 56 U/L (16-61); Albumin 3.9 g/dL (3.4-5.0); Anion Gap 5 (5-15); Blood Alcohol < 3.0 mg/dL (0-5); Blood Urea Nitrogen 8 mg/dL (7-18); Calcium 8.8 mg/dL (8.5-10.1); Carbon Dioxide 28 mmol/L (21-32); Chloride 101 mmol/L (98-107); Glucose 124 mg/dL (74-106); Potassium 3.9 mmol/L (3.5-5.1); Sodium 134 mmol/L (136-145)
[2023-03-16 16:57] LABS: Salicylate < 1.7 mg/dL (2.8-20.0)
[2023-03-16 16:58] LABS: Acetaminophen < 2.0 ug/mL (10-30)
[2023-03-16 16:59] LABS: Alkaline Phosphatase 92 U/L (45-117); Aspartate Aminotransferase 46 U/L (15-37); BUN/Creatinine Ratio 9.2 (10.0-20.0); Bilirubin, Total 1.4 mg/dL (0.2-1.0); GFR African American 123 mL/min; GFR Non-African American 102 mL/min; Total Protein 8.2 g/dL (6.4-8.2)
[2023-03-16 17:00] LABS: Alcohol, Urine < 3.0 mg/dL (0-10); Amphetamine Screen, Urine NEGATIVE (NEGATIVE); Barbiturate Scree,Urine NEGATIVE (NEGATIVE); Benzodiazephine Screen, Urine POSITIVE (NEGATIVE); Cannabinoid Screen, Urine NEGATIVE (NEGATIVE); Cocaine Screen, Urine NEGATIVE (NEGATIVE); Opiate Scree,Urine NEGATIVE (NEGATIVE); Phencyclidine Screen, Urine NEGATIVE (NEGATIVE)
[2023-03-16] MEDS: FOLIC ACID 1 MG, MULTIPLE VITAMIN 10 ML, MAGNESIUM SULF SDV 50% 8 MEQ, THIAMINE INJ 100... INJ SCH ×5 (17:42)
[2023-03-16] MEDS ORDERED: LORazepam 2MG/ML-1ML VIAL IV PRN (23:30)
[2023-03-16] MEDS ORDERED: LORazepam 0.5 MG TAB PO PRN (23:30)
[2023-03-16] MEDS ORDERED: NITROGLYCERIN 0.4 MG SL TAB SL PRN (23:30)
[2023-03-16] MEDS ORDERED: LACTATED RINGER'S 1,000 ML IV ONE (23:30)
[2023-03-16] MEDS ORDERED: MORPHINE SULFATE INJ 2 MG/ml SYRG IV PRN (23:30)
[2023-03-17 00:17] LABS: Bilirubin, Direct 0.4 mg/dL (0-0.2)
[2023-03-17 00:19] LABS: Bilirubin, Total 1.3 mg/dL (0.2-1.0)
[2023-03-17] MEDS: chlordiazePOXIDE HCL 25 MG CAP PO SCH ×5 (03:14→21:15)
[2023-03-17 06:02] LABS: Potassium 3.6 mmol/L (3.5-5.1)
[2023-03-17 06:11] LABS: Albumin 3.4 g/dL (3.4-5.0); BUN/Creatinine Ratio 9.9 (10.0-20.0); Bilirubin, Total 1.1 mg/dL (0.2-1.0); Magnesium 2.7 mg/dL (1.6-2.6); Total Protein 7.2 g/dL (6.4-8.2)
[2023-03-17 06:58] LABS: Basophils # (auto) 0 10 ^3/uL (0-0.2); Basophils % (auto) 0.6 % (0.0-2.0); Eosinophils # (auto) 0.1 10 ^3/uL (0-0.8); Eosinophils % (auto) 1.6 % (0.0-7.0); Hemoglobin 15.7 g/dL (13.5-17.5); Lymphocytes # (auto) 1.9 10 ^3/uL (0.4-5.4); Lymphocytes % (auto) 22.7 % (10.0-50.0); Mean Corpuscular Hgb Conc. 35.7 g/dL (32.0-36.0); Mean Corpuscular Volume 89.6 fL (80.0-100.0); Monocytes # (auto) 0.5 10 ^3/uL (0-1.3); Monocytes % (auto) 5.8 % (0.0-12.0); Neutrophils # (auto) 5.9 10 ^3/uL (1.6-8.6); Neutrophils % (auto) 69.3 % (37.0-80.0); Nucleated Red Blood Cells % 0.3 %; Red Blood Cells 4.91 10^6/uL (4.5-5.90); Red Cell Distribution Width 14.4 % (11.8-14.3); White Blood Cell 8.5 10^3/uL (4.4-10.8)
[2023-03-17] MEDS: MULTIPLE VITAMIN TAB PO SCH (09:47)
[2023-03-17] MEDS: THIAMINE HCL 100 MG TAB PO SCH (09:47)
[2023-03-17] MEDS: FOLIC ACID 1 MG TAB PO SCH (09:47)
[2023-03-17] MEDS: FOLIC ACID 1 MG, MULTIPLE VITAMIN 10 ML, MAGNESIUM SULF SDV 50% 8 MEQ, THIAMINE INJ 100... INJ SCH ×5 (11:58)
[2023-03-17 17:14] VITALS: BP 121/81
[2023-03-18 05:00] VITALS: BP 132/86
[2023-03-18] MEDS: FOLIC ACID 1 MG TAB PO SCH (09:00)
[2023-03-18] MEDS: THIAMINE HCL 100 MG TAB PO SCH (09:02)
[2023-03-18] MEDS: MULTIPLE VITAMIN TAB PO SCH (09:02)
[2023-03-18 09:10] VITALS: BP 123/91
[2023-03-18] MEDS ORDERED: chlordiazePOXIDE HCL 25 MG CAP PO SCH (10:00)
[2023-03-18] MEDS ORDERED: CHL25C PO (10:04)
[2023-03-18] MEDS ORDERED: FOLI-119 PO (10:04)
[2023-03-18] MEDS ORDERED: THIA100T13 PO (10:04)
[2023-03-18 11:03] VITALS: BP 120/91
[2023-03-18 13:00] VITALS: BP 128/91
[2023-03-19] MEDS ORDERED: chlordiazePOXIDE HCL 25 MG CAP PO SCH (07:00)
== END 2023-03-18 14:08 | disposition home or self-care (01) | DRG 641 ==
LOC: ER 15:00 → TELE 23:26 → TELE-CENTR 03-17 17:29
PROVIDERS: ADMIT Internal Medicine; ATTEND Family Medicine
DX: E86.0 Dehydration (principal); F10.239 Alcohol dependence with withdrawal, unspecified; E11.65 Type 2 diabetes mellitus with hyperglycemia; F41.9 Anxiety disorder, unspecified; K76.0 Fatty (change of) liver, not elsewhere classified; I10 Essential (primary) hypertension; Z80.3 Family history of malignant neoplasm of breast; Z90.49 Acquired absence of other specified parts of digestive tract; Z71.41 Alcohol abuse counseling and surveillance of alcoholic
CPT/HCPCS: 36415; 80053; 80307; 80320; 80329; 81001; 82247; 82248; 83735; 85025; 96365; G0378; J2405

== ENCOUNTER 2024-04-30 17:57 | Emergency (ER) | payer BC ==
[~2024-04-30] VITALS: Ht 180.3 cm; Wt 123.7 kg
[~2024-04-30 17:57] MED LIST changes: +CHL25C PO; -CLAR1TAB21 PO; +FOLI-119 PO; +LOSA-533 PO; -LOSA25TA15 PO; -SUCR1TAB22 PO; +SUCR1TAB31 PO; +THIA100T13 PO
[2024-04-30 18:31] VITALS: BP 149/89; PULSE 105; RESP 14; TEMP 98.7; O2SAT 96
[2024-04-30] MEDS: KETOROLAC TROMETH 60MG/2ML VIAL IM ONE (19:11)
[2024-04-30] MEDS ORDERED: METH4PAK PO (19:57)
== END 2024-04-30 20:12 | disposition home or self-care (01) ==
LOC: ER 17:57
DX: R20.2 Paresthesia of skin (principal); M79.602 Pain in left arm; M54.2 Cervicalgia; E11.9 Type 2 diabetes mellitus without complications; E78.5 Hyperlipidemia, unspecified; I10 Essential (primary) hypertension
CPT/HCPCS: 72040; 96372; 99283; J1885

== ENCOUNTER → 2024-05-03 | Outpatient (CLI) | payer BC ==
[~2024-05-03] MED LIST changes: +METH4PAK PO
[2024-05-03 10:12] LABS: Basophils # (auto) 0 10 ^3/uL (0-0.2); Basophils % (auto) 0.5 % (0.0-2.0); Eosinophils # (auto) 0.1 10 ^3/uL (0-0.8); Eosinophils % (auto) 0.9 % (0.0-7.0); Hematocrit 51.2 % (41.0-53.0); Hemoglobin 17.8 g/dL (13.5-17.5); Lymphocytes # (auto) 2.1 10 ^3/uL (0.4-5.4); Lymphocytes % (auto) 24.3 % (10.0-50.0); Mean Corpuscular Hemoglobin 30.3 pg (28.0-32.0); Mean Corpuscular Hgb Conc. 34.8 g/dL (32.0-36.0); Mean Corpuscular Volume 87.1 fL (80.0-100.0); Monocytes # (auto) 0.3 10 ^3/uL (0-1.3); Neutrophils # (auto) 6.1 10 ^3/uL (1.6-8.6); Neutrophils % (auto) 70.3 % (37.0-80.0); Nucleated Red Blood Cells % 0.2 %; Red Blood Cells 5.88 10^6/uL (4.5-5.90); White Blood Cell 8.6 10^3/uL (4.4-10.8)
[2024-05-03 10:35] LABS: Prothrombin Time 10.6 sec (9.3-11.8)
[2024-05-03 10:52] LABS: Alanine Aminotransferase 49 U/L (7-40); Albumin 4.9 g/dL (3.2-4.8); Alkaline Phosphatase 84 U/L (46-116); Anion Gap 6 (5-15); Aspartate Aminotransferase 32 U/L (13-40); BUN/Creatinine Ratio 14.4 (10.0-20.0); Blood Urea Nitrogen 13 mg/dL (9-23); Calcium 9.7 mg/dL (8.7-10.4); Carbon Dioxide 30 mmol/L (20-30); Chloride 103 mmol/L (98-107); Glucose 137 mg/dL (74-106); LDL Cholesterol 145 mg/dL (< 100); Potassium 4.1 mmol/L (3.5-5.1); Sodium 139 mmol/L (136-145); Triglycerides 189 mg/dL (< 150)
[2024-05-03 10:53] LABS: Cholesterol 225 mg/dL (< 200)
[2024-05-03 10:54] LABS: Bilirubin, Total 1.1 mg/dL (0.2-1.0); HDL Cholesterol 62 mg/dL (40-59); Total Protein 8.1 g/dL (5.7-8.2)
[2024-05-04 09:15] LABS: Hepatitis B Surface Antigen Negative (Negative)
[2024-05-04 09:36] LABS: Hepatitis C Antibody Negative (Negative)
== END | disposition home or self-care (01) ==
LOC: LAB 09:34
PROVIDERS: ATTEND Internal Medicine Gastroenterology
DX: R10.9 Unspecified abdominal pain (principal); R94.5 Abnormal results of liver function studies
CPT/HCPCS: 36415; 80053; 80061; 82105; 82140; 82728; 83036; 85025; 85610; 86038; 86803; 87340

== ENCOUNTER 2024-05-30 11:04 | Emergency (ER) | payer BC ==
[~2024-05-30] VITALS: Ht 180.3 cm; Wt 122.0 kg
[2024-05-30 12:22] LABS: Basophils # (auto) 0.1 10 ^3/uL (0-0.2); Basophils % (auto) 0.9 % (0.0-2.0); Eosinophils # (auto) 0.1 10 ^3/uL (0-0.8); Eosinophils % (auto) 1.5 % (0.0-7.0); Hematocrit 46.1 % (41.0-53.0); Hemoglobin 16.2 g/dL (13.5-17.5); Lymphocytes # (auto) 2.4 10 ^3/uL (0.4-5.4); Lymphocytes % (auto) 24.4 % (10.0-50.0); Mean Corpuscular Hemoglobin 30.5 pg (28.0-32.0); Mean Corpuscular Hgb Conc. 35.2 g/dL (32.0-36.0); Mean Corpuscular Volume 86.7 fL (80.0-100.0); Monocytes # (auto) 0.6 10 ^3/uL (0-1.3); Monocytes % (auto) 6.1 % (0.0-12.0); Neutrophils # (auto) 6.6 10 ^3/uL (1.6-8.6); Neutrophils % (auto) 67.1 % (37.0-80.0); Nucleated Red Blood Cells % 0.6 %; Platelet Count (auto) 227 10^3/uL (140-450); Red Blood Cells 5.31 10^6/uL (4.5-5.90); White Blood Cell 9.8 10^3/uL (4.4-10.8)
[2024-05-30 12:36] VITALS: BP 132/87; PULSE 81; RESP 18; TEMP 97.7; O2SAT 98
[2024-05-30 12:36] LABS: Chloride 107 mmol/L (98-107); Potassium 3.9 mmol/L (3.5-5.1); Sodium 140 mmol/L (136-145)
[2024-05-30 12:37] LABS: Anion Gap 11 (5-15); Carbon Dioxide 22 mmol/L (20-30)
[2024-05-30 12:38] LABS: Calcium 9.8 mg/dL (8.7-10.4)
[2024-05-30 12:43] LABS: BUN/Creatinine Ratio 12.9 (10.0-20.0); Blood Urea Nitrogen 11 mg/dL (9-23); Glucose 120 mg/dL (74-106)
[2024-05-30 12:52] LABS: Erythrocyte Sedimentation Rate 15 mm/hr (0-20)
[2024-05-30 12:53] LABS: CRP High Sensitivity 3.31 mg/dL (<1.0)
[2024-05-30] MEDS: KETOROLAC TROMETH 30 MG/ML 1ML VIAL IM ONE (13:12)
[2024-05-30] MEDS ORDERED: IBUP-1455 PO (13:31)
== END 2024-05-30 13:56 | disposition home or self-care (01) ==
LOC: ER 11:04
DX: M25.561 Pain in right knee (principal); F41.9 Anxiety disorder, unspecified; E11.9 Type 2 diabetes mellitus without complications; E78.5 Hyperlipidemia, unspecified; I10 Essential (primary) hypertension; Z90.49 Acquired absence of other specified parts of digestive tract; Z79.2 Long term (current) use of antibiotics; Z79.899 Other long term (current) drug therapy
CPT/HCPCS: 29505; 36415; 73562; 80048; 83605; 85025; 85652; 86141; 96372; 99284; J1885